=== PATIENT | female | born 1975 | race Caucasian/White ===

== ENCOUNTER → 2017-11-13 10:14 | Outpatient (CLI) | payer BC, SELFPAY ==
--- NOTE | 2017-11-13 10:25 | XR_ITS ---
XR wrist LT min 3V HISTORY: Pain following injury ORDERING PHYSICIAN: Veronica Sánchez PATIENT AGE: 42 years COMPARISON: None FINDINGS: No fracture or dislocation. No lytic or blastic change. There is normal mineralization.. The joint spaces are well-preserved. No significant degenerative/arthritic changes. No erosive changes evident.. IMPRESSION: Negative wrist
--- NOTE | 2017-11-13 10:26 | XR_ITS ---
XR elbow LT min 3V HISTORY: Left elbow pain following injury ITS.REASON: INJURY OF LEFT WRIST AND FOREARM,LEFT ELBOW FX ORDERING PHYSICIAN: Veronica Sánchez PATIENT AGE: 42 years COMPARISON: None FINDINGS: Comminuted fracture involves the radial head and neck with involvement of the articular surface of the proximal radius. There is minimal impaction of the radial neck. Displacement. Prominent anterior and posterior fat pad is present consistent with hemarthrosis. IMPRESSION: Comminuted nondisplaced left radial neck and head fracture
--- NOTE | 2017-11-13 10:26 | XR_ITS ---
XR forearm LT 2V HISTORY: Pain following injury ORDERING PHYSICIAN: Veronica Sánchez PATIENT AGE: 42 years COMPARISON: None FINDINGS: There is a known comminuted nondisplaced fracture of the radial head and neck best demonstrated on the elbow films. The mid and distal aspect of the radius and ulna have an unremarkable appearance. IMPRESSION: Comminuted nondisplaced fracture of the left radial head and neck. Otherwise negative left forearm
== END ==
PROVIDERS: PCP Family Medicine; Visit Provider Nurse Practitioner Family
DX: S69.92XD Unspecified injury of left wrist, hand and finger(s), subsequent encounter (principal); S59.912D Unspecified injury of left forearm, subsequent encounter; S42.402D Unspecified fracture of lower end of left humerus, subsequent encounter for fracture with routine healing
CPT/HCPCS: 73080; 73090; 73110

== ENCOUNTER → 2017-11-22 08:30 | Outpatient (CLI) | payer BC, SELFPAY ==
--- NOTE | 2017-11-22 08:33 | XR_ITS ---
XR elbow LT min 3V HISTORY: Follow-up fracture ITS.REASON: Left radial head fracture ORDERING PHYSICIAN: Scotty Barkley MD PATIENT AGE: 42 years COMPARISON: FINDINGS: Nondisplaced radial head and neck fracture once again noted. Radial component is longitudinal extends into the articular surface. Transverse component is at the radial neck. The fracture lines are somewhat more prominent and could be due to early healing. Intra-articular hemarthrosis with displaced fat pad identified. IMPRESSION: 1. Good alignment of the radial head and neck fracture. 2. Persistent displaced fat pad
== END ==
PROVIDERS: PCP Family Medicine; Visit Provider Orthopaedic Surgery
DX: S52.122A Displaced fracture of head of left radius, initial encounter for closed fracture (principal)
CPT/HCPCS: 73080

== ENCOUNTER → 2017-11-28 13:29 | Outpatient (CLI) | payer BC, SELFPAY ==
--- NOTE | 2017-11-28 13:31 | XR_ITS ---
XR elbow LT min 3V HISTORY: Follow-up fracture ITS.REASON: LT radial head fx ORDERING PHYSICIAN: Scotty Barkley MD PATIENT AGE: 42 years COMPARISON: 11/22/2017 FINDINGS: Radial head fracture once again noted with longitudinal component extending into the articular surface and transverse component of the radial neck. These fractures are nondisplaced and nonangulated with no significant change compared to the previous exam. Displaced anterior fat pad once again noted. IMPRESSION: No change nondisplaced radial head and neck fracture
== END ==
PROVIDERS: PCP Family Medicine; Visit Provider Orthopaedic Surgery
DX: S52.123A Displaced fracture of head of unspecified radius, initial encounter for closed fracture (principal)
CPT/HCPCS: 73080

== ENCOUNTER → 2017-12-06 08:24 | Outpatient (CLI) | payer BC, SELFPAY ==
--- NOTE | 2017-12-06 08:26 | XR_ITS ---
XR elbow LT min 3V HISTORY: Follow-up fracture ITS.REASON: Left radial head fracture ORDERING PHYSICIAN: Scotty Barkley MD PATIENT AGE: 42 years COMPARISON: 11/28/2017 FINDINGS: L shaped fracture involving the radial head and neck once again noted. The fracture line is somewhat less sharp and may be due to early healing. There is now minimal step off of the lateral aspect of the radial head with very minimal displacement. IMPRESSION: Healing radial head fracture now with very minimal step-off laterally
== END ==
PROVIDERS: PCP Family Medicine; Visit Provider Orthopaedic Surgery
DX: S52.123A Displaced fracture of head of unspecified radius, initial encounter for closed fracture (principal)
CPT/HCPCS: 73080

== ENCOUNTER → 2017-12-27 08:44 | Outpatient (CLI) | payer BC, SELFPAY ==
--- NOTE | 2017-12-27 08:46 | XR_ITS ---
XR elbow LT min 3V HISTORY: Follow-up fracture ITS.REASON: Radial head fx ORDERING PHYSICIAN: Scotty Barkley MD PATIENT AGE: 42 years COMPARISON: 12/06/2017 FINDINGS: Minimally depressed radial head and neck fracture once again noted with some increased sclerosis at the fracture site consistent with healing. Fracture line remains patent at the articular surface of the radial head. There remains minimal step-off of the radial head laterally. IMPRESSION: Healing left radial neck and head fracture
== END ==
PROVIDERS: PCP Family Medicine; Visit Provider Orthopaedic Surgery
DX: S52.123A Displaced fracture of head of unspecified radius, initial encounter for closed fracture (principal)
CPT/HCPCS: 73080

== ENCOUNTER → 2018-01-24 09:51 | Outpatient (CLI) | payer BC, SELFPAY ==
--- NOTE | 2018-01-24 09:55 | XR_ITS ---
XR elbow LT min 3V HISTORY: Follow-up fracture ITS.REASON: left elbow fracture ORDERING PHYSICIAN: Scotty Barkley MD PATIENT AGE: 42 years COMPARISON: 12/27/2017 FINDINGS: Left radial neck and head fracture once again noted is overall not significant changed. Fracture line still visible. Fracture is not significantly displaced. IMPRESSION: Overall no change nondisplaced radial head and neck fracture
== END ==
PROVIDERS: PCP Family Medicine; Visit Provider Orthopaedic Surgery
DX: S52.123A Displaced fracture of head of unspecified radius, initial encounter for closed fracture (principal)
CPT/HCPCS: 73080

== ENCOUNTER → 2018-02-12 13:24 | Outpatient (CLI) | payer BC, SELFPAY ==
--- NOTE | 2018-02-12 13:51 | CT_ITS ---
CT elbow LT wo con 3-D by rendering with shading Ordering Physician: Scotty Barkley MD Patient Age: 42 years: Female HISTORY: ITS.REASON: left radial head fx Patient slipped and fell getting out of of. Also involvement in the 8. Follow-up radial head fracture in November. Continues at left elbow pain unable straighten elbow right TECHNIQUE: Axial CT scan performed through the elbow with multiplanar reconstructions performed on CT as well as radiologist workstation. Additional 3-D by rendering imaging on radiologist [id number] CPT COMPARISON :Plain films left elbow January 24, 2018 December 27, 2017 December 06, 2017 FINDINGS We again see the fracture extending basically anterior to posterior to radial head and the continuing through the anterior radial neck.. Minor cortical buckling at the anterior radial neck. The radial head fracture is fairly congruent articular surface with only some very subtle barely evident cortical offset.. There is some very minor impaction of the fracture fragment yielding this and the mild cortical buckling at the neck The fracture line through radial head evident particularly at the radial head with minor sclerosis along the fracture margins.. Reflects incomplete osseous union still at this point. On close inspection there is also a subtle line passing longitudinally at the proximal ulna leading to articular surface.. This is seen on sagittal image 22, 21... Also question possible hairline micro-fracture proximal ulna on axial image 51 ! , particularly towards base and tip, coronoid process.. Initially question merely nutrient foramen but on further review I question and suspect are some healing microfractures here at medial aspect joint & notable at coracoid process. Continues to be smooth congruent appearance of the ulna articular surface. Distal humerus appears intact. Likely may be some early narrowing at the radial, capitate articulation which could reflect early degenerative change. No notable loose bodies are seen at the joint otherwise. IMPRESSION 1. 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 This fragment along the the anterior radial head very subtle impacted. 2. Question & suspect Extremely Subtle healing microfracture line at the proximal ulna -extending to the articular surface and involving coronoid process
== END ==
PROVIDERS: Family Provider Family Medicine; PCP Family Medicine; Visit Provider Orthopaedic Surgery
DX: S52.122A Displaced fracture of head of left radius, initial encounter for closed fracture (principal)
CPT/HCPCS: 73200

== ENCOUNTER → 2018-03-08 08:47 | Outpatient (CLI) | payer BC, SELFPAY ==
--- NOTE | 2018-03-08 08:51 | MM_ITS ---
MM Dig screening mamm BI w/CAD CAD Screening ORDERING PHYSICIAN : Serjio Cheng MD PATIENT AGE: 42 years GENDER: Female HISTORY no hormones no new complaints. Family history. Mother with breast cancer in her 50s; and maternal grandmother in her 40s COMPARISON:. None. Baseline mammogram TECHNIQUE: Standard CC and MLO images were obtained. R2 CAD reviewed. FINDINGS: Moderate diffuse fatty replacement with overall lower density breast but still with Minimal fibroglandular elements throughout seen throughout both breasts. Fairly symmetrical distribution with no dominant mass nor suspicious calcifications either breast no focal areas of significant concern. Bilateral follow-up within one year recommended.. Area IMPRESSION: Negative baseline mammogram No areas of significant concern on this baseline mammogram. . Follow-up one year recommended BI-RADS Category: 1 Negative RECOMMENDED FOLLOW-UP: 1YR - 1 YEAR FOLLOW-UP (A letter has been sent to the patient regarding results of the study.)
== END ==
PROVIDERS: Family Provider Family Medicine; PCP Family Medicine; Visit Provider Obstetrics & Gynecology
DX: Z12.31 Encounter for screening mammogram for malignant neoplasm of breast (principal)
CPT/HCPCS: 77067

== ENCOUNTER → 2019-06-25 16:15 | Outpatient (CLI) | payer BC, SELFPAY ==
[2019-06-25 16:31] LABS: Adenovirus F 40/41, stool Not Detected (NotDetected); Astrovirus Not Detected (NotDetected); Clostridium Difficile A/B, PCR Not Detected (NotDetected); Cyclospora Cayetanesis Not Detected (NotDetected); Entamoeba histolytica Not Detected (NotDetected); Enteroaggregative E coli Not Detected (NotDetected); Enteropathogenic E coli Not Detected (NotDetected); Enterotoxigenic E coli Not Detected (NotDetected); Giardia lamblia Not Detected (NotDetected); Norovirus Not Detected (NotDetected); Plesimonas Shigalloides, PCR Not Detected (NotDetected); Rotavirus A Not Detected (NotDetected); Salmonella, PCR Not Detected (NotDetected); Sapovirus Not Detected (NotDetected); Shiga-like toxin E coli Not Detected (NotDetected); Shigella Enterovasive E coli Not Detected (NotDetected); Vibrio Cholerae Not Detected (NotDetected); Vibrio, PCR Not Detected (NotDetected); Yersinia Entercolitica, PCR Not Detected (NotDetected)
[2019-06-25 18:15] LABS: Alanine Aminotransferase 55 U/L (12-78); Albumin Level 4.3 gm/dL (3.4-5.0); Albumin/Globulin Ratio 1.1 (1.1-1.8); Alkaline Phosphatase 108 U/L (46-116); Amylase 27 U/L (25-115); Anion Gap 18.1 mEq/L (5-15); Aspartate Amino Transferase 33 U/L (15-37); Bilirubin,Total 0.4 mg/dL (0.2-1.0); Blood Urea Nitrogen 9 mg/dL (7-18); Calcium 10.1 mg/dL (8.5-10.1); Carbon Dioxide 23 mmol/L (21.0-32.0); Chloride 100 mmol/L (98-107); Creatinine,Serum 0.79 mg/dL (0.55-1.02); Estimated Glomerular Filt Rate 80 ml/min (>60); GFR (African American) 97 ML/MIN (>60); Glucose 98 mg/dL (74-106); Lipase 140 u/L (73-393); Potassium 4.1 mmoL/L (3.5-5.1); Sodium 137 mmol/L (136-145); Total Protein,Serum 8.3 gm/dL (6.4-8.2)
[2019-06-25 20:08] LABS: Basophils % 0.2 % (0.1-2.0); Eosinophils % 0.5 % (0.1-12.0); Hematocrit 42.6 % (37.0-47.0); Hemoglobin 14.1 g/dL (12.2-16.2); Lymphocytes % 10.9 % (10-50); Mean Corpuscular HGB Conc 33.1 g/dL (31.8-35.4); Mean Corpuscular Hemoglobin 28.9 pg (27.0-31.2); Mean Corpuscular Volume 87.4 fl (81-99); Mean Platelet Volume 8.8 fl (7.4-10.4); Monocytes # 0.2 K/mm3 (0.1-1.0); Monocytes % 2.3 % (1.7-9.3); Neutrophils # 7.5 K/mm3 (1.8-7.8); Neutrophils % 86.2 % (37.0-80.0); Platelet Count 432 K/mm3 (142-424); Red Blood Count 4.87 M/mm3 (4.20-5.40); Red Cell Distribution Width 12.8 % (11.5-17.5); White Blood Count 8.8 K/mm3 (4.8-10.8)
[2019-06-25 20:10] LABS: MANUAL DIFFERENTIAL MANUAL DIFFERENTIAL (MANUAL DIFF)
[2019-06-25 20:55] LABS: Lymphocytes % 15 % (10-50); Monocytes % 3 % (2-9); Neutrophils % 82 % (42-76); Platelet Estimate Normal; RBC Morphology Normal; Total Cells Counted 100
[2019-06-25 21:35] LABS: Campylobacter Detected (NotDetected); Cryptosporidium Detected (NotDetected)
== END ==
PROVIDERS: Visit Provider Nurse Practitioner Family
DX: A07.2 Cryptosporidiosis (principal); R19.7 Diarrhea, unspecified; R10.10 Upper abdominal pain, unspecified; A04.5 Campylobacter enteritis
CPT/HCPCS: 36415; 80053; 82150; 83690; 85007; 85025; 87507

== ENCOUNTER → 2020-06-10 16:27 | Outpatient (CLI) | payer BC, SELFPAY ==
[2020-06-12 13:15] LABS: Covid-19 Nasal PCR Sendout Lex NOT DETECTED
== END ==
PROVIDERS: PCP Family Medicine; Visit Provider Family Medicine
DX: Z03.818 Encounter for observation for suspected exposure to other biological agents ruled out (principal)
CPT/HCPCS: U0004

== ENCOUNTER → 2021-01-26 14:17 | Outpatient (CLI) | payer BC, SELFPAY ==
[2021-01-26 14:46] LABS: Basophils % 0.2 % (0.1-2.0); Eosinophils # 0.1 K/mm3 (0.0-0.4); Eosinophils % 1.6 % (0.1-12.0); Hematocrit 39.3 % (37.0-47.0); Lymphocytes # 1.4 K/mm3 (0.7-4.5); Lymphocytes % 19.3 % (10-50); Mean Corpuscular Hemoglobin 29.1 pg (27.0-31.2); Mean Corpuscular Volume 88.1 fl (81-99); Mean Platelet Volume 7.7 fl (7.4-10.4); Monocytes # 0.2 K/mm3 (0.1-1.0); Neutrophils # 5.3 K/mm3 (1.8-7.8); Neutrophils % 75.9 % (37.0-80.0); Platelet Count 299 K/mm3 (142-424); Red Blood Count 4.46 M/mm3 (4.20-5.40); Red Cell Distribution Width 13.2 % (11.5-17.5)
[2021-01-26 16:02] LABS: 25-OH Vitamin D, Total 42.2 ng/mL (30-100)
[2021-02-01 05:34] LABS: Immunoglobulin E, Total 6 IU/mL (6-495)
[2021-02-02 04:21] LABS: F256-IgE Walnut <0.10 kU/L (Class 0)
== END ==
PROVIDERS: Visit Provider Allergy & Immunology
DX: J45.40 Moderate persistent asthma, uncomplicated (principal)
CPT/HCPCS: 36415; 82306; 82785; 85025; 86003

== ENCOUNTER → 2021-02-12 10:54 | Outpatient (CLI) | payer BC, SELFPAY ==
--- NOTE | 2021-02-12 10:57 | XR_ITS ---
PROCEDURE: XR ANKLE RT MIN 3V CLINICAL INDICATION: INJURY OF RT ANKLE,RT ANKLE SWELLING, NUMBNESS OF RT FOOT COMPARISON: No exams were available for comparison FINDINGS: No fracture or dislocation. No lytic or blastic change. There is normal mineralization. The joint spaces are well-preserved. No significant degenerative/arthritic changes. No erosive changes evident. Other findings:There is a small metallic foreign body along the plantar surface of the foot along the plantar aspect of the 1st and 2nd metatarsals distally. This is linear in nature measuring approximately 5 mm. There is a small calcaneal spur. IMPRESSION: Unremarkable ankle. Metallic foreign body in the plantar aspect of the foot superficial to the region of the head of the 1st and 2nd metatarsals Dictated by: Juan Ventura MD 02/12/2021 12:00 Juan Ventura MD in [place] 02/12/2021 12:00
== END ==
PROVIDERS: PCP Nurse Practitioner Family; Visit Provider Nurse Practitioner Family
DX: S99.911A Unspecified injury of right ankle, initial encounter (principal); S93.431A Sprain of tibiofibular ligament of right ankle, initial encounter; M25.471 Effusion, right ankle; R20.0 Anesthesia of skin
CPT/HCPCS: 73610

== ENCOUNTER → 2021-11-01 08:41 | Outpatient (CLI) | payer BC, SELFPAY ==
--- NOTE | 2021-11-01 08:42 | CA_ITS ---
APPROVED REPORT EXAM: Comprehensive 2D, Doppler, and color-flow Echocardiogram Hi Teacher: Michelle Mckeon, RT(R) Ht: 5 ft 3 in Wt: 218lbs BSA: 2.01 BP: 123/85 mmHg Indications: SOB, fatigue, ABN EKG 2D Dimensions LVOT 1.90 cm (M/F) 1.5-2.5 LA Volume 44.40 mL LA Volume Index 22.20 mL/m2 (M/F) 16-34 M-Mode Dimensions RVDd 2.58 cm (0.9-2.6) LA Diam 3.05 cm (1.9-4.0) LVDd 5.35 cm (3.5-5.7) Ao Diam 2.97 cm (2.0-3.7) LVDs 3.99 cm (3.5-5.7) IVSd 0.80 cm (0.6-1.1) PWd 0.68 cm (0.6-1.1) EF (Teich) 49.70% FS 25.40% EDV (Teich) 138.30 mL ESV (Teich) 69.60 mL LV Diastology E Decel Time 217.00 (160-240 msec) E/A Ratio 0.9 MED E' 13.10 (< 7 cm/sec) E'/MED E' Ratio 5.63 (>14) LAT E' 14.50 (<10 cm/sec) E/LAT E' Ratio 5.09 (>14) Mitral Valve MV E Max Lamonte. 74.00 (40-130 cm/s) MV A Velocity 80.00 (40-130 cm/s) E/A Ratio 0.92 MV Decel. Time 217.00 (160-240 ms) MV PHT 63.00 ms Left Ventricle Left atrium is normal size, left ventricle is normal size, there is no concentric left ventricular hypertrophy, visually estimated ejection fraction 55% with no regional wall motion abnormality, diastolic parameters are within normal range. Right Ventricle Right atrium and right ventricle are normal size and contractility. Aortic Valve Aortic valve is minimally thickened and fibrosed, there is no aortic stenosis or aortic insufficiency. Mitral Valve Mitral valve grossly normal, there is trace mitral regurgitation. Tricuspid Valve Tricuspid valve grossly normal, there is trace tricuspid regurgitation, tricuspid regurgitation jet velocity is inadequate for calculation of the right ventricular systolic pressure. Pulmonic Valve Pulmonic valve is poorly visualized. Great Vessels Aortic root is normal size. Inferior vena cava is normal size with normal inspiratory collapse. Pericardium No significant pericardial effusion noted. Conclusion 1. Normal left ventricular size, preserved left ventricular systolic function, visually estimated ejection fraction 55% with no regional wall motion abnormality, diastolic parameters are within normal range. 2. Trace mitral and tricuspid regurgitation. 3. No significant pericardial effusion noted. 4. Inferior vena cava is normal size with normal inspiratory collapse. Electronically signed by : Fermín Nevarez MD 11/01/2021 17:07:05
== END ==
PROVIDERS: PCP Family Medicine; Visit Provider Nurse Practitioner Family
DX: R06.00 Dyspnea, unspecified (principal); R61 Generalized hyperhidrosis; G47.30 Sleep apnea, unspecified
CPT/HCPCS: 93306; G0399

== ENCOUNTER → 2021-11-17 08:15 | Outpatient (CLI) | payer BC, SELFPAY ==
--- NOTE | 2021-11-17 | CA_ITS ---
APPROVED REPORT Exam: Exercise Treadmill Technologist: Francheska Amin, Ht: 5 ft 3 in Wt: 212 lbs BSA: 1.98 m2 HR: 76 bpm BP: 145/87 mmHg Rhythm: NSR, ST-T ABNS INFERIORLY AND LATERALLY Medical History Medications: Sertraline,,,,, Allergies: No known drug allergies Stress Test Details Test: Nicol, Exercise stress testing was performed using a Nicol protocol. HR Resting HR: 90 bpm Max Heart Rate (APMHR): 175.462882 bpm Max HR Achieved: 188 bpm Target HR (85% APMHR): 148.669074 bpm % of APMHR: 107.43 Recovery HR: 82 bpm BP Resting BP: 145/87 mmHg Max BP: 161/90 mmHg Recovery BP: 132.0/82.0 mmHg ECG Resting ECG: NSR, ST-T ABNS INFERIORLY AND LATERALLY Clinical Exercise duration: 08:24 min Highest Stage Achieved: Exercise capacity: 10.1 METs Stress ECG Conclusion EXERCISED 8:24 ON NICOL PROTOCOL. MAX HR: 159. % OF PM:91%. METS:10.1. TEST STOPPED DUE TO:SOA. PT JUST HAD DYSPNEA NO CP. EXAGGERATION OF BASELINE ABNS. NON-DIAGNOSTIC GXT DUE TO BASELINE EKG ABNS. GXT ONLY(NO IMAGING) Electronically signed by : Fermín Nevarez MD 11/17/2021 20:40:04
== END ==
PROVIDERS: PCP Family Medicine; Visit Provider Urology
DX: R94.31 Abnormal electrocardiogram [ECG] [EKG] (principal); R61 Generalized hyperhidrosis
CPT/HCPCS: 93017

== ENCOUNTER → 2021-12-09 11:40 | Outpatient (CLI) | payer BC, SELFPAY ==
[2021-12-09 11:58] LABS: Coronavirus 19, PCR Not Detected (NotDetected); Influenza A, PCR Not Detected (NotDetected); Influenza B, PCR Not Detected (NotDetected)
== END ==
PROVIDERS: Visit Provider Nurse Practitioner Family
DX: Z01.812 Encounter for preprocedural laboratory examination (principal); Z11.52 Encounter for screening for COVID-19
CPT/HCPCS: C9803; U0003; U0005

== ENCOUNTER → 2021-12-09 21:05 | Outpatient (CLI) | payer BC, SELFPAY | PROVIDERS: PCP Family Medicine; Visit Provider Nurse Practitioner Family | DX: G47.33 Obstructive sleep apnea (adult) (pediatric) (principal); R40.0 Somnolence | CPT/HCPCS: 95810 ==

== ENCOUNTER 2022-03-15 14:49 | Emergency (ER) | payer BC, SELFPAY ==
[2022-03-15 15:10] VITALS: BP 141/94; PULSE 80; RESP 18; TEMP 36.7; O2SAT 95; BMI 37.2
[2022-03-15 15:18] LABS: Adenovirus,PCR Not Detected (NotDetected); Bordetella Pertussis Not Detected (NotDetected); Chlamydophila Pneumoniae, PCR Not Detected (NotDetected); Coronavirus 19, PCR Not Detected (NotDetected); Coronavirus 229E Not Detected (NotDetected); Coronavirus NL63 Not Detected (NotDetected); Coronavirus OC43 Not Detected (NotDetected); Coronovirus HKU1,PCR Not Detected (NotDetected); Human Metapneumovirus Not Detected (NotDetected); Influenza A, PCR Not Detected (NotDetected); Influenza AH1, 2009 Not Detected (NotDetected); Influenza AH1, PCR Not Detected (NotDetected); Influenza AH3,PCR Not Detected (NotDetected); Influenza B, PCR Not Detected (NotDetected); Mycoplasma Pneumoniae, PCR Not Detected (NotDetected); Parainfluenza 1, PCR Not Detected (NotDetected); Parainfluenza 2, PCR Not Detected (NotDetected); Parainfluenza 3, PCR Not Detected (NotDetected); Parainfluenza 4, PCR Not Detected (NotDetected); Respiratory Syncytial Virus Not Detected (NotDetected); Rhinovirus/Enterovirus Not Detected (NotDetected)
--- NOTE | 2022-03-15 15:36 | HMH.EDUTC ---
[facility] [place] Clinical Impression: Bronchitis Disposition: Home, Self-Care Condition on Discharge: Good Instructions: Cough, DI for Cough -- Adult Additional Instructions: ? Start antibiotic today. Be sure to complete entire prescription even if feeling better ? Monitor temp. Tylenol every 4 hours as needed and / or ibuprofen every 6 hours as needed ( As long as your primary care physician has told you that it ok to take both. For fever/aches/pains ER if no less than 101 despite Tylenol or Motrin ? Humidifier/vaporizer or hot steamy shower ? Inhaler every 4-6 hours as needed like we discussed. If unsure how to use it, ask pharmacist to demonstrate how. Should help open airways and improve cough, wheezing, and shortness of breath ? Mucinex during the day for your cough and cough suppressant only at night. Be sure to drink lots of water. Insurance may not cover a prescriptions for mucinex. Might be cheaper to get 400mg tablets and take 2 tablet in the morning, mid-day and evening with lots of water. *Promethazine DM cough syrup will cause drowsiness. Use only at night. No driving, operating machinery or caring for small children after taking it *Tessalon Perles will not cause drowsiness but use at bedtime to help stop cough so that you may get some rest. *Start steroid today. Helps with inflammation therefore, cough and wheezing. Follow directions on the package. Reviewed side effects. Patient reports taking them before. Follow up IMMEDIATELY for new or worsening of symptoms OR no noticeable improvement over the next 48-72 hours. 911 immediately for any life threatening symptoms such as chest pain or difficulty breathing Prescriptions: Albuterol Sulfate [Proventil-HFA 90mcg/puff Inh] 1 - 2 puffs IH Q6HP PRN #1 each PRN Reason: Shortness Of Breath Transmission Status: Received by [facility] # dexAMETHasone [Dexamethasone] 6 mg PO DAILY 3 Days #3 tab Transmission Status: Received by [facility] # Promethazine/Dextromethorphan [Promethazine-Dm Syrup] 2.5 - 5 ml PO Q6H PRN #120 ml PRN Reason: Cough Transmission Status: Received by [facility] # Azithromycin [Z-Regulo 250mg Tab] 250 mg PO DIRECTED #6 tab Transmission Status: Received by [facility] #[id number] Referrals: Carol Martins APRN [Primary Care Provider] - As needed Medical Decision Making - Hakan Inquiry Pt receiving controlled substance: No Hakan was queried for this patient: No Vital Signs: 03/15/22 15:10 03/15/22 15:59 Temperature 98.0 F 98.0 F Temperature Source Oral Pulse Rate 80 Pulse Rate [Right Brachial] 80 Respiratory Rate 18 18 Blood Pressure 141/94 H Blood Pressure [Right Arm] 141/94 H Blood Pressure Mean [Right Arm] 109 Blood Pressure Source [Right Arm] Automatic Cuff Blood Pressure Position [Right Arm] Sitting 02 Sat by Pulse Oximetry 95 Oxygen Delivery Method Room Air Orders (Tests/Meds): ORDERS Category Date Time Status Full Resp Panel w/COVID ([facility]) Routine Lab 03/15/22 15:12 Received Medical Decision Narrative: Discussed CXR with patient and she advised she wasnt having any rattling in her chest so declined it [facility] [place] - General Stated complaint: soa bron. symptons Time Seen by Provider: 03/15/22 15:25 Mode of Arrival: Ambulatory Source of Information: Patient Limitations: No Limitations Description of Symptoms (Recalled from Triage Doc. by RN): PATIENT C/O CHEST CONGESTION AND SOA. SHE STATES SHE HAS HAD BRONCHITIS FOR 2 WEEKS AND IS NOT GETTING BETTER HEENT Symptoms (Recalled from RN notes): No Resp Symptoms (Recalled from RN notes): Yes Skin Symptoms (Recalled from RN notes): No MS Symptoms (Recalled from RN notes): No Functional Status (Recalled from RN notes): WNL - History of Present Illness Provider Complaint: Patient states that she has asthma States that she had bronchitis about 2 weeks ago and was treated by her PCP but for the last couple
[2022-03-15 15:59] VITALS: BP 141/94; PULSE 80; RESP 18; TEMP 36.7; O2SAT 95
== END 2022-03-15 16:10 | disposition home or self-care (01) ==
PROVIDERS: Emergency Provider Nurse Practitioner; PCP Nurse Practitioner
DX: J40 Bronchitis, not specified as acute or chronic (principal)
CPT/HCPCS: 87581; 87632; 87798; 99212; C9803; G0463; U0003; U0005

== ENCOUNTER 2023-02-12 12:06 | Emergency (ER) | payer BC, SELFPAY ==
--- NOTE | 2023-02-12 12:25 | XR_ITS ---
PROCEDURE INFORMATION: Exam: XR Right Foot Exam date and time: 02/12/2023 12:43 PM Age: 47 years old Clinical indication: Right; Patient HX: PT moving logs around x days ago, foot began hurting shortly after. Worsened mostly since yesterday, PT states painful to put pressure on foot. Pain @ dorsal surface of RT foot and at 2nd digit. TECHNIQUE: Imaging protocol: Radiologic exam of the right foot. Views: 3 or more views. COMPARISON: CR XR ANKLE RT MIN 3V 02/12/2021 11:03 AM FINDINGS: Bones/joints: No evidence of acute osseous injury. Minimal enthesophyte plantar margin of the calcaneus at the site of attachment of the plantar aponeurosis. Soft tissues: Approximate 5 mm radiopaque foreign body along the plantar aspect of the foot at the level of the 1st and 2nd metatarsals. Findings demonstrated on the 02/12/2021 examination and do not appear significantly changed in location. Clinically correlate. IMPRESSION: 1. Approximate 5 mm radiopaque foreign body along the plantar aspect of the foot at the level of the 1st and 2nd metatarsals. Findings demonstrated on the 02/12/2021 examination and do not appear significantly changed in location. Clinically correlate. 2. No evidence of acute osseous injury.
[2023-02-12 12:31] VITALS: BP 142/87; PULSE 93; RESP 18; TEMP 36.6; O2SAT 97; BMI 38.0
--- NOTE | 2023-02-12 12:43 | EXP.UTC ---
Discharge Plan Disposition Patient Disposition: Home, Self-Care Condition: Good Prescriptions Prescriptions: No Action omeprazole 40 mg capsule,delayed release(DR/EC) 40 mg PO DAILY Qty: 90 3RF sertraline [Zoloft] 100 mg tablet 150 mg PO Q24H estradiol 1 mg tablet 1 mg PO DAILY Rx Instructions: off 1 week; repeat cycle albuterol sulfate 200 PUFF HFA aerosol inhaler 1 - 2 puffs IH Q6HP PRN (Reason: Shortness Of Breath) Qty: 1 0RF Referrals Follow up/Referrals: Rosa Maria Young MD [Primary Care Provider] - See instructions Activity Restrictions/Add. Instructions Additional Instructions/Restrictions: Weightbearing as tolerated rest Ice with cold pack for 20 minutes remove may repeat for comfort every hour Elevate with foot above your heart as much as possible to help reduce swelling and therefore pain Ibuprofen every 6 hours as needed for pain or inflammation. If needs something more you can take Tylenol every 4 hours as needed as long as her primary care has told he was okayed for you to take both. If improving any do not need to follow-up you can bring begin exercising 2-3 weeks after injury. Follow-up immediately if new or worsening symptoms or no noticeable improvement over the next 3-5 days. call ortho Clinical Impressions Clinical Impression: Pain in toe Instructions Patient Instructions: DI for Contusion Discharge ED Provider: Anand ([facility] General Stated complaint: AO 5/5 Right foot the second toe swolle/painful Mode of Arrival: Ambulatory Source of Information: Patient Limitations: No Limitations Time Seen by Provider: 02/12/23 12:43 Description of Symptoms (Recalled from Triage Doc. by RN): pt c/o R foot 2nd toe pain x2 days. pt states she was cleaning and thinks she hit it on something. HEENT Symptoms (Recalled from RN notes): No Resp Symptoms (Recalled from RN notes): No Skin Symptoms (Recalled from RN notes): No MS Symptoms (Recalled from RN notes): Yes Functional Status (Recalled from RN notes): wnl History of Present Illness Provider Complaint: 47 yr old female c/o R foot 2nd toe pain x2 days. pt states she was cleaning and thinks she hit it on something. pt states pain has increased Related Data Home Medications Medication Instructions Recorded Confirmed sertraline 100 mg tablet (Zoloft) 150 mg PO Q24H 01/14/22 09/23/22 estradiol 1 mg tablet 1 mg PO DAILY 11/18/21 07/01/22 Previous Rx's Medication Instructions Recorded albuterol sulfate 90 mcg/actuation 1 - 2 puffs inhalation Q6HP PRN 03/15/22 aerosol inhaler Shortness Of Breath #1 ea omeprazole 40 mg capsule,delayed 40 mg PO DAILY #90 caps 07/01/22 release Allergies Allergy/AdvReac Type Severity Reaction Status Date / Time dissolving sutures Allergy Unknown Uncoded 07/01/22 10:07 LIQUID BANDAID Allergy Unknown SWELLING Uncoded 07/01/22 10:07 Worker's Comp Is this a Worker's Comp case?: No [facility] Disclaimer: The information contained in this section may have been updated after the patient was seen, as this information can be updated by other users. 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
[2023-02-12 13:00] VITALS: BP 142/87; PULSE 93; RESP 18; TEMP 36.6
== END 2023-02-12 13:06 | disposition home or self-care (01) ==
PROVIDERS: Emergency Provider Nurse Practitioner Family; PCP Family Medicine
DX: M79.674 Pain in right toe(s) (principal); W22.8XXA Striking against or struck by other objects, initial encounter
CPT/HCPCS: 73630; 99212; 99214; G0463

== ENCOUNTER 2025-01-06 08:37 | Outpatient (CLI) | payer BC, SELFPAY ==
--- NOTE | 2025-01-06 08:45 | CA_ITS ---
APPROVED REPORT EXAM: Comprehensive 2D, Doppler, and color-flow Echocardiogram Garment Looper: Mehnaz Silva RVT Ht: 5 ft 3 in Wt: 252lbs BSA: 2.13 BP: 129/85 mmHg Indications: PRE-OP,ABN EKG,CP,SOA 2D Dimensions LA Volume 27.90 mL LA Volume Index 13.04 mL/m2 (M/F) 16-34 M-Mode Dimensions RVDd 2.65 cm (0.9-2.6) LA Diam 3.37 cm (1.9-4.0) LVDd 4.79 cm (3.5-5.7) LVDs 3.18 cm (3.5-5.7) IVSd 1.04 cm (0.6-1.1) PWd 0.79 cm (0.6-1.1) EF (Teich) 62.30% FS 33.60% EDV (Teich) 107.00 mL TAPSE 2.73 (<1.7) ESV (Teich) 40.30 mL LV Diastology E Decel Time 243 (160-240 msec) E/A Ratio 0.8 Aortic Valve JEFRY Index 1.33 cm2/m2 AoV Peak Lamonte. 136.0 (50-130 cm/s) AO Peak GR. 7.40 mmHg AO Mean GR. 3.90 (<5 mmHg) AO VTI 19.7 (18-25 cm) JEFRY (VTI) 2.91 (2.5-4.5 cm2) Mitral Valve MV E Max Lamonte. 60.0 (40-130 cm/s) MV A Velocity 71.0 (40-130 cm/s) E/A Ratio 0.85 MV PHT 71.0 ms Pulmonary Valve PV Peak Velocity 92.0 (50-150 cm/s) Tricuspid Valve TR P. Velocity 229.00 cm/s RAP Estimate 10.00 mmHg RVSP 31.00 mmHg Left Ventricle The left ventricle is normal size. The left ventricular systolic function is low normal. There is normal left ventricular wall thickness. There is normal LV segmental wall motion. The left ventricular diastolic function is normal. LVEF is 50%. Right Ventricle The right ventricle is normal size. The right ventricular systolic function is normal. Atria The left atrium size is normal. The right atrium size is normal. There is no Doppler evidence of interatrial shunt. Aortic Valve The aortic valve opens well. There is no aortic valvular stenosis. No aortic regurgitation is present. Mitral Valve The mitral valve is normal in structure. No evidence of mitral valve stenosis. Trace mitral regurgitation. Tricuspid Valve Tricuspid valve is grossly normal in structure and function. Trace tricuspid regurgitation. Pulmonic Valve The pulmonary valve is normal in structure. Trace pulmonic regurgitation. There is insufficient TR jet to estimate RVSP. Great Vessels The aortic root is normal in size. The ascending aorta is borderline dilated, measuring 3.7 cm in diameter. IVC is normal in size and collapses >50% with inspiration. Pericardium There is no pericardial effusion. Other Information Study Quality: Fair Conclusion Low normal LV systolic function (LVEF 50%). No significant valvular stenosis or regurgitation. The ascending aorta is borderline dilated, measuring 3.7 cm in diameter. Electronically signed by : Rhonda Cerna MD 01/06/2025 23:53:52
== END 2025-01-06 23:59 | disposition home or self-care (01) ==
LOC: RT 08:37
PROVIDERS: PCP Family Medicine; Visit Provider Nurse Practitioner Family
DX: Z01.810 Encounter for preprocedural cardiovascular examination (principal); R94.31 Abnormal electrocardiogram [ECG] [EKG]
CPT/HCPCS: 93306

== ENCOUNTER 2025-01-29 07:40 | Outpatient (CLI) | payer BC, SELFPAY ==
--- NOTE | 2025-01-29 08:00 | CT_ITS ---
FINAL REPORT TECHNIQUE: Axial imaging of the chest is obtained after the administration of contrast. 3-D MIP reformatted images were also obtained and reviewed per PE protocol. CLINICAL HISTORY: aneurysm COMPARISON: none FINDINGS: No central pulmonary embolus. The ascending aortic diameter is 32 mm and the descending aortic diameter is 28 mm, within normal limits. There is no aortic dissection. The heart is borderline in size. There is no mediastinal, hilar, or axillary lymphadenopathy. There is a 4 mm left upper lobe pulmonary nodule on image 23. There is also a 2 mm subpleural right upper lobe nodule on image 39. The lungs are otherwise clear.. There is no pleural or pericardial effusion. Limited evaluation of the upper abdomen is without acute abnormality. No acute osseous abnormality. IMPRESSION: No evidence of thoracic aortic aneurysm or dissection. Bilateral 4 mm or less upper lobe pulmonary nodules. Recommend follow-up after risk stratification per Fleischner's criteria. Reviewed, Interpreted and Dictated by Andreina Vazquez MD Transcribed by Mayra Yates Authenticated and [facility]
[2025-01-29] MEDS: SODIUM CHLORIDE 0.9% 10ML SYR (RAD ONLY) 10 ML IV (08:12)
[2025-01-29] MEDS: IOPAMIDOL-370 (76%);100ML BOTTLE 100 ML IV (08:12)
[2025-01-29] MEDS: 0.9 % SODIUM CHLORIDE 50 ML VIAL IV (08:12)
== END 2025-01-29 23:59 | disposition home or self-care (01) ==
LOC: RAD 07:41
PROVIDERS: PCP Family Medicine; Visit Provider Nurse Practitioner Family
DX: R94.31 Abnormal electrocardiogram [ECG] [EKG] (principal); R07.9 Chest pain, unspecified; I77.810 Thoracic aortic ectasia
CPT/HCPCS: 71275; Q9967

== ENCOUNTER 2025-06-30 09:11 | Outpatient (CLI) | payer BC, SELFPAY ==
--- OUTSIDE RECORDS SUMMARY | 2025-06-30 09:38 | XMS_ITS | Clinical Summary ---
Author Organization [facility] Address [address] [place] [address] Care Team Providers Care Auto Bumper Straightener Name Role Phone James Riggins MD Primary Care Provider + Allergies Active Allergy Reactions Criticality Noted Date Comments Other Swelling 08/03/2017 Surgical GLUES cause swelling, allergic to surgical stitches Medications montelukast (SINGULAIR) 10 MG tablet Take 10 mg by mouth Every Night. Active albuterol (PROVENTIL HFA;VENTOLIN HFA) 108 (90 Base) MCG/ACT inhaler Inhale 2 puffs Every 4 (Four) Hours As Needed for Wheezing. Active sertraline (ZOLOFT) 100 MG tabletIndicatio ns:Anxiety Take 1 tablet by mouth Daily. 30 tablet 11 1 Active Additional Information Patient taking differently: 150 mgOral Daily, Reported on 11/16/2022 hydrOXYzine pamoate (VISTARIL) 25 MG capsuleIndicati ons:Anxiety Take 1 capsule by mouth 3 (Three) Times a Day As Needed for Itching. 30 capsule 3 1 Active Clyde-3 Fatty Acids (fish oil) 500 MG capsule capsule Acti ve omeprazole (priLOSEC) 40 MG capsule 3 Active estradiol (Estrace) 1 MG tablet Take 1 tablet by mouth Daily. 90 tablet 3 3 Active Active Problems Problem Noted Date Diagnosed Date History of UTI 09/26/2017 Acute URI 09/26/2017 Post-operative state 09/26/2017 Endometriosis 08/11/2017 Overview (08/11/2017): Added automatically from request for surgery [id number] Dysmenorrhea 08/03/2017 Abnormal uterine bleeding (AUB) 08/03/2017 Intramural leiomyoma of uterus 08/03/2017 Family History Medical History Relation Name Comments Heart disease Father Breast cancer Maternal Aunt 1 Cervical cancer Maternal Aunt 1 Brain cancer Maternal Aunt 2 Cervical cancer Maternal Aunt 2 Breast cancer Maternal Grandmother unknow n Cervical cancer Mother Colon cancer Neg Hx Ovarian cancer Neg Hx Uterine cancer Neg Hx Relation Name Status Comments Father Maternal Aunt 1 Maternal Aunt 2 Maternal Grandmother Mother Social History Tobacco Use Types Packs/Day Years Used Date Smoking Tobacco: Never Smokeless Tobacco: Never Alcohol Use Standard Drinks/Week Comments Yes 0 (1 standard drink = 0.6 oz pur e alcohol) 2-4 drinks a wek Abuse Screen Answer Date Recorded Unsafe at Home or Work/School Not on file Feels Threatened by Someone? Not on file 06/2023 Does Anyone Keep You from Co ntacting Others or Doint Things Outside the Home? Not on file 07/17/2023 Physical Sign of Abuse Present Not on file 1 Housing Stability Answer Date Recorded Current Living Arrangements Not on file 06/2023 Potentially Unsafe Housing Conditions Not on nazario e 07/17/2023 Family and Community Support Answer Raj e Recorded Help with Day-to-Day Activities Not on file 07/17/2023 Lonely or Isolated Not on file 07/17/2023 Employment Answer Date Recorded Do you want help finding or keeping work or a roberto b? Not on file 07/17/2023 Disabilities Answer Date Recorded Concentrating, Remembering, or Making Decisions Difficulty Not on file 07/17/2023 Doing Errands Independently Difficulty Not on fi le 07/17/2023 Education Answer Date Recorded Help with school or training? Not on file Preferred Language Not on file 07/17/2023 Comments No Sex and Gender Information Value Date Recorded Sex Assigned at Not on file Legal Sex Female 12:57 PM EDT Gender Identity Not on file Sexual Orientation Not on file Last Filed Vital Signs Vital Sign Reading Time Taken Comments Blood Pressure 110/78 11/16/2022 9:20 AM EST Pulse 93 10/19/2017 2:22 PM EST Temperature 36.5 C (97.7 F) 10/19/2017 2:22 PM EST Respiratory Rate 18 11/16/2022 9:20 AM EST Oxygen Saturation 96% 10/19/2017 2:22 PM EST Inhaled Oxygen Concentration - - Weight 103 kg (227 lb) 11/16/2022 9:20 AM EST Height 160 cm (5' 2.99 ) 11/16/2022 9:20 AM EST Body Mass Index 40.22 11/16/2022 9:20 AM EST Plan of Treatment Health Maintenance Due Date Last Done Comments TDAP/TD VACCINES (1 - Tdap) 1995 ANNUAL PHYSICAL 08/03/2017 HEPATITIS C SCREENING 08/03/2017 COLON CANCER SCREENING 5 YEAR SIGMOIDOSCOPY [address] COLONOGRAPHY 2021 FECAL OCCULT BLOOD TEST 2021 FIT Testing (1 year) 2021 PAP SMEAR 11/16/2023 11/16/2022, 01/08, 04/18/2019, Additional history exists Annual Gynecologic Pelvic and Breast Exam 11/17/2023 11/16/2022 MAMMOGRAM 04/17/2025 04/17/2023, 04/08, 04/17/2023, Additional history exists INFLUENZA VACCINE 05/09/2025 COLOGUARD 11/29/2025 11/29/2022 COLORECTAL CANCER SCREENING 11/29/2025 Pneumococcal Vaccine 0-49 Aged Out No longer eligible based on patient's age to complete this topic Procedures Procedure Name Priority Date/Time Associated Diagnosis Comments MAMMO OUTSIDE FILMS Routine 04/17/2023 3:07 PM EDT H/O mammogram COLOGUARD Routine 11/29/2022 10:00 AM EST Screening for colon cancer LIQUID-BASED PAP SMEAR, [facility]) Routine 11/16/2022 4:17 PM EST Pap test, as part of routine gynecological examination from Last 3 Months or Most Recently Relevant to Health Maintenance Results * MAMMO Outside Films (04/17/2023 3:07 PM EDT) Narrative SYSTEMGENERATED, DOCUMENTATION - 04/17/2023 3:07 PM EDT This procedure was auto-finalized with no dictation required. Sathya Paris AQUEDUCT AND RESERVOIR KEEPER IMG MAMMOGRAPHY ORDERABLES Fi nal Result * Cologuard - Stool, Per Rectum (11/29/2022 10:00 AM EST) Cologuard Negative Negative 12/06/2022 5:14 PM EST DEQ (CLIA #:[id number]) Comment: NEGATIVE TEST RESULT. A negative Cologuard result indicates a low likelihood that a colorectal cancer (CRC) or advanced adenoma (adenomatous polyps with more advanced pre-malignant features) is present. The chance that a person with a negative Cologuard test has a colorectal cancer is less than 1 in 1500 (negative predictive value >99.9%) or has an advanced adenoma is less than 5.3% (negative predictive value 94.7%). These data are based on a prospective cross-sectional study of 10,000 individuals at average risk for colorectal cancer who were screened with both Cologuard and colonoscopy. (Pariiallos T. et al, N Engl J Med 2014;370(14):5885-9309) The normal value (reference range) for this assay is negative. COLOGUARD RE-SCREENING RECOMMENDATION: Periodic colorectal cancer screening is an important part of preventive healthcare for asymptomatic individuals at average risk for colorectal cancer. Following a negative Cologuard result, the [place] Cancer Society and U.S. Multi-Society Task Force screening guidelines recommend a Cologuard re-screening interval of 3 years. References: [place] [employer] Guideline for Colorectal Cancer Screening: https://www.cancer.org/cancer/igyip-advtzv-ccpajv/meekhkmqr-pbuwnqfhn-ulbjrem/ac s-rec ommendations.html.; Jacob REDDING, Hammad DAWN, Laura GUZMAN, Colorectal Cancer Screening: Recommendations for Physicians and Patients from the U.S. Multi-Society Task Force on Colorectal Cancer Screening , Am J Gastroenterology 2017; 112:3702-4305. TEST DESCRIPTION: Composite algorithmic analysis of stool DNA-biomarkers with hemoglobin immunoassay. Quantitative values of individual biomarkers are not reportable and are not associated with individual biomarker result reference ranges. Cologuard is intended for colorectal cancer screening of adults of either sex, 45 years or older, who are at average-risk for colorectal cancer (CRC). Cologuard has been approved for use by the U.S. FDA. The performance of Cologuard was established in a cross sectional study of average-risk adults aged 50-84. Cologuard performance in patients ages 45 to 49 years was estimated by sub-group analysis of near-age groups. Colonoscopies performed for a positive result may find as the most clinically significant lesion: colorectal cancer [4.0%], advanced adenoma (including sessile serrated polyps greater than or equal to 1cm diameter) [20%] or non- advanced adenoma [31%]; or no colorectal neoplasia [45%]. These estimates are derived from a prospective cross-sectional screening study of 10,000 individuals at average risk for colorectal cancer who were screened with both Cologuard and colonoscopy. (Oswaldo Alvarado. et al, N Engl J Med 2014;370(14):3742-3186.) Cologuard may produce a false negative or false positive result (no colorectal cancer or precancerous polyp present at colonoscopy follow up). A negative Cologuard test result does not guarantee the absence of CRC or advanced adenoma (pre-cancer). The current Cologuard screening interval is every 3 years. ([place] [employer] Society and U.S. Multi-Society Task Force). Cologuard performance data in a 10,000 patient pivotal study using colonoscopy as the reference method can be accessed at the following location: www.Metaboli.CIVICO/results. Additional description of the Cologuard test process, warnings and precautions can be found at www.Discomixdownload.comrd.com. Stool specimen (specimen) Specimen from rectum / Unknown 11/29/2022 10:00 AM EST 11/30/2022 1:44 PM EST us Sathya Paris AQUEDUCT AND RESERVOIR KEEPER BODY FLUIDS AND STOOLS ORDERA BLES Final Result DEQ (CLIA #:[id number]) [address] [place] [address], [place] [phone] * LIQUID-BASED PAP SMEAR, [facility]) (11/16/2022 4:17 PM EST) Reference Lab Report [facility] [address] [place] [id number] or [phone] Samuel Pappas M.D., Relocation Manager PATIENT NAME LABORATORY NO. 65NILE CANCHOLA [id number] AGE SEX SSN CLIENT REF # [facility] 46 1975 F [id number] [facility] JUAN BACA REQUESTING Victor Manuel [place] [address] SATHYA PARIS DATE COLLECTED DATE RECEIVED DATE REPORTED 11/16/2022 11/16/2022 11/18/2022 ThinPrep Pap with Cytyc Imaging DIAGNOSIS: Negative for intraepithelial lesion or malignancy Multiple factors can influence accuracy of Pap tests; therefore, screening at regular intervals is necessary for early cancer detection. SPECIMEN ADEQUACY: SATISFACTORY FOR EVALUATION Transformation zone is present. SOURCE OF SPECIMEN: CERVICAL SLIDES: 1 CLINICAL HISTORY: Pap test, as part of routine gynecological examination HPV HR-HPV POOL: Negative The Aptima HPV assay is an in vitro nucleic acid amplification test for the qualitative detection of E6/E7 viral messenger RNA from 14 high risk types of HPV in cervical specimens. The high risk HPV types detected include: 16, 18, 31, 33, 35, 39, 45, 51, 52, 56, 58, 59, 66, 68 VOCATIONAL ED INSTRUCTOR: JAZLYN LUCAS (ASCP) CPT CODES: 65251, 24198 11/18/2022 7:23 AM EST [facility] ThinPrep Vial Cervix uteri structure / Unknown Collection / Unknown 11/16/2022 4:17 PM EST 11/16/2022 4:17 PM EST us Sathya Paris AQUEDUCT AND RESERVOIR KEEPER PATHOLOGY/CYTOLOGY ORDERABLES Final Result [facility]
[address] [place] [address], from Last 3 Months or Most Recently Relevant to Health Maintenance Insurance Advance Directives Documents on File Type Date Recorded Patient Bend Up Expl anation LIVING WILL - SCAN 04/21/2022 6:07 AM DIMA NG WILL DIRECTIVE 08/25/2017 * Full Code (Latest Code Status on File) Date Activated Date Inactivated Comments 08/25/2017 2:51 PM 08/26/2017 12:02 PM * Full Code Date Activated Date Inactivated Comments 08/25/2017 2:44 PM 08/25/2017 2:51 PM Care Teams Auto Bumper Straightener Relationship Specialty Start Date End Date James Riggins MD PCP - General Family Medicine 08/03/17
== END 2025-06-30 23:59 | disposition home or self-care (01) ==
LOC: RT 09:12
PROVIDERS: PCP Family Medicine; Visit Provider Physician Assistant
DX: I49.1 Atrial premature depolarization (principal); I49.3 Ventricular premature depolarization
CPT/HCPCS: 93270

== ENCOUNTER 2025-07-14 09:43 | Outpatient (CLI) | payer BC, SELFPAY ==
--- OUTSIDE RECORDS SUMMARY | 2025-07-14 09:47 | XMS_ITS | Data Portability ---
Author Organization [facility] Address [address] [place] [address] Assessment No assessment recorded. Plan of Treatment Reminders Order Date Submit Date Provider Last Modified By Organization Details Last Modified Time Details Appointments None record ed. Lab None record ed. Referral None record ed. Procedures None record ed. Surgeries None record ed. Imaging None record ed. Medication Orders None record ed. Patient TargetsNo targets recorded. Patient Instructions Encounter Date Encounter Id Patient Instructions Last Modified By Organization Details Last Modified Time 03/16/2018 [id number] eating healthy foods: care instructions [id number] Not available 04/14/2022 03:49:01 Reason for Referral None Reported. Results Created Date Observation Date Name Description Value Unit Range Abnormal Flag Note LastModifiedBy Organization Detail LastModifiedTime 03/14/20 18 03/14/2018 MRI, elbow , w/o contr ast [place] [address] [address] Patien t Name: SANTAMAGALY Rodriguez LINDA Patirita t : 976 Patien t 1 Orderi ng Provid er: ROBERT N Vinny FRIAS Y EXAM DATE: 2017 EXAM: MR LT ELBOW WITHOU T CONTRA ST HISTOR Y: 42-yea r-old female with left elbow pain. COMPAR MASSIEL: [facility] 11/13[facility] 18. FINDIN GS: There is a subacu te fractu re of the left radial head. There is minima l associ ated marrow edema and trabec ular interr uption . There is minima l step-o ff along the articu lar surfac e of the radial head. No acute fractu re is identi fied. There is a small joint effusi on in the elbow. The ulnar collat eral ligame nt, latera l ulnar collat eral ligame nt, and radial collat eral ligame nt appear intact . The common extens or tendon and common flexor tendon are normal in appear ance. The biceps , brachi lorie, and tricep s tendon s appear normal . There is minima l subcut aneous edema. IMPRES CASA: 1. There is a subacu te fractu re of the left radial head. There is no eviden ce of delaye d union and there is minima l residu al displa cement . 2. There is a small joint effusi on in the left elbow. Interp reted By: Aly patel MD Electr onical ly Signed By: Aly patel MD on 03/14/20 18 9:46 AM [id number] [facility] [address], [address], 04/14/2022 03:50:46 Result Notes Documentation Provider Name and Address Organization Details Recorded Time Mri, Elbow, W/o Contrast : [address] [address] Patient Name: NILE MCKEON Patient : 1975 Patient Ordering Provider: TAMIKA ASHFORD EXAM DATE: 03/14/2018 EXAM: MR LT ELBOW WITHOUT CONTRAST HISTORY: 42-year-old female with left elbow pain. COMPARISON: Report from radiograph performed at [facility] on 11/13/2017. FINDINGS: There is a subacute fracture of the left radial head. There is minimal associated marrow edema and trabecular interruption. There is minimal step-off along the articular surface of the radial head. No acute fracture is identified. There is a small joint effusion in the elbow. The ulnar collateral ligament, lateral ulnar collateral ligament, and radial collateral ligament appear intact. The common extensor tendon and common flexor tendon are normal in appearance. The biceps, brachialis, and triceps tendons appear normal. There is minimal subcutaneous edema. IMPRESSION: 1. There is a subacute fracture of the left radial head. There is no evidence of delayed union and there is minimal residual displacement. 2. There is a small joint effusion in the left elbow. Interpreted By: Felipe Sanchez MD KA ASHFORD MD [address] [place] [address], [phone], [facility] 03/14/2018 11:08:27 Medical Equipment None Reported. Allergies No known drug allergies Medications Name Sig Start Date Stop Date Status Note LastModified by Organization Details LastModified Time Zoloft 100 mg tablet Take 1 tablet every day by oral route. active Not Available Not Available No t Available Singulair active Not Available Not Lissette ilable Not Available inhaler, assist devices, accessories active Not Available Not Available Not Available Vitals Date Recorded Body height Body mass index (BMI) Body weight Provider Name and Address Organization Details Last Updated DateTime 03/07/2018 152.4 cm 44.9 kg/m2 005571.25 g [facility] 03/07/2018 09:41:15 Date Recorded Body height Body mass index (BMI) Body weight Provider Name and Address Organization Details Last Updated DateTime 03/16/2018 152.4 cm 44.9 kg/m2 717073.25 g [facility] 03/16/2018 08:17:31 Social History Question Answer Notes LastModified by [employer] Details LastModified Time Accident Related Injury Yes Information not available 03/07/2018 What Is Your Level Of Caffeine Consumption? Occasional Information not available 03/07/2018 Which Of Your Hands Is Dominant? Right Information not available 03/07/2018 Which Hand Is Involved? Left Information not available 03/07/2018 Date Of Injury: 11-11-2017 Informati on not available 03/07/2018 Marital Status Informatio n not available 03/07/2018 Sex: Unknown Functional Status Question Answer Note LastModified by [employer] Details LastModified Time Do you use any illicit or recreational drugs? No Information not available 03/07/2018 What is your level of alcohol consumption? Occasional Information not available 03/07/2018 What is your occupation? stay at home mom Information not available 03/07/2018 Mental Status None recorded. Family History Relationship Description Onset Age of this Age Resolved Age Notes LastModified by Organization Details LastModified Time Father No current problems or disability Not available 03/07 09:42:48 Mother No current problems or disability Not available 03/07 09:42:48 Medical History Condition Response Allergies/Hayfever Y Pneumonia Y Gynecological HistoryNo gynecological history recorded. Obstetrics History GPAL:G 0 P 0 0 0 0 Past Encounters Encounter ID Performer Location Encounter Start Date Encounter Closed Date Diagnosis/Indication Diagnosis SNOMED-CT Code Diagnosis ICD10 Code Diagnosis IMO Codes Diagnosis Note [id number] TAMIKA ASHFORD MD [facility] [address] [place] [address] 03/07/2018 09:08:27 03/07/2018 11:08:36 Unstable left elbow joint [id number] M25.322 Possible instabilit y causing symptoms, Possible chondral damage to the capitellum , possible loose body. Usually when I see the vertical portion not healed it means that there is A shear of the capitellar cartilage that is interposed between the fracture fragments which is difficult or impossible to tell at the time of the initial injury. This may be an indication that there is another loose cartilage fragment in the joint causing her Mechanical symptoms that is not visible on x-rays. Recommend MRI left elbow follow-up with test. We will also evaluate lateral collateral ligament because she has some pain with stressing it. [id number] TAMIKA ASHFORD MD [facility] [address] [place] [address] 03/16/2018 08:13:01 03/16/2018 09:10:08 Unstable left elbow joint [id number] M25.322 Left elbow radial head fracture, improving, no obvious sign of mechanical symptoms, no loose body no ligament tear. Observe for another 2 months if still symptomati c consider elbow arthroscop y. She understand s. No restrictio ns. Follow-up as needed. MRI reviewed. Health Concerns Section Related Observation LastModified by Organization Detai ls LastModified Time None Recorded Concern Status LastModified by Organization Details LastModified Time None Recorded Advance Directives Directive None Recorded Payers Insurance Date Sequence Insurance Name Policy Number Policy Singleton Covered Member ID Singleton Member ID Guarantor Name 09/02/2020 1 [place] [employer] ([place]) [id number] Cecilio Mckeon [id number] Michael Linda Notes Date Note Type Note Provider Name and Address Organization Details Recorded Time 03/07/2018 text/html Hand SurgeryRepo rted by PatientHPIFor hand dominance, patient reportsright. For location, patient reportsleft. For severity, patient reportspain level 1/10. For duration, patient reportsdate of injury: [id number] weeks. For previous surgery, patient reportsnone. For work related, patient reportsno. For working, patient reportsno. 17 weeks left elbow pain, popping catching and locking in the joint, hurts often, Does not feel right. TAMIKA ASHFORD MD [address] [place], [address], [facility] 03/07/2018 10:14:57 03/16/2018 text/html Hand SurgeryRepo rted by PatientHPIFor hand dominance, patient reportsright. For location, patient reportsleft. For severity, patient reportspain level 1/10. For duration, patient reportsdate of injury: [id number] months. For previous surgery, patient reportsnone. For work related, patient reportsno. 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
--- OUTSIDE RECORDS SUMMARY | 2025-07-14 09:47 | XMS_ITS | Clinical Summary ---
Author Organization [facility] Address [address] [place] [address] Care Team Providers Care Environmental Field Services Technician Name Role Phone James Riggins MD Primary [...] for Itching. 30 capsule 3 1 Active Geneva-3 Fatty Acids (fish oil) 500 MG capsule capsule Acti ve omeprazole (priLOSEC) 40 MG capsule 3 Active estradiol (Estrace) 1 MG tablet Take 1 tablet by mouth Daily. 90 tablet 3 3 Active Active Problems Problem Noted Date Diagnosed Date History of UTI 09/26/2017 Acute URI 09/26/2017 Post-operative state 09/26/2017 Endometriosis 08/11/2017 Overview (08/11/2017): Added automatically from request for surgery [id number] Dysmenorrhea 08/03/2017 Abnormal uterine bleeding (AUB) 08/03/2017 Intramural leiomyoma of uterus 08/03/2017 Encounters Date Type Department Care Team Description 07/07/2025 Refill [facility] [address] [id number] Sathya Paris APRN from Last 3 Months Family History Medical History Relation Name Comments [...] help finding or keeping work or a geri b? Not on file 07/17/2023 Disabilities Answer [...] Pelvic and Breast Exam 11/17/2023 11/16/2022 MAMMOGRAM 05/03/2025 05/03/2023, 04/08, 04/17/2023, Additional history exists INFLUENZA VACCINE [...] auto-finalized with no dictation required. Sathya Paris RN ENTEROSTOMAL IMG MAMMOGRAPHY ORDERABLES Fi nal Result * Cologuard - Stool, Per Rectum (11/29/2022 10:00 AM EST) Cologuard Negative Negative 12/06/2022 5:14 PM EST Rupture (CLIA #:[id number]) Comment: NEGATIVE TEST RESULT. A negative Cologuard [...] screened with both Cologuard and colonoscopy. (Oswaldo Peters et al, N Engl J Med 2014;370(14):3855-5802) The normal value (reference range) for this assay is negative. COLOGUARD RE-SCREENING RECOMMENDATION: Periodic colorectal cancer screening is an important part of preventive healthcare for asymptomatic individuals at average risk for colorectal cancer. Following a negative Cologuard result, the [place] [employer] Society and U.S. Multi-Society Task Force screening guidelines recommend a Cologuard re-screening interval of 3 years. References: [place] [employer] Guideline for Colorectal Cancer Screening: https://www.cancer.org/cancer/avrkq-xgicky-ztcfxk/smkegqflg-vzjzobazv-buxnjfn/ac s-rec ommendations.html.; Jacob DK, Hammad DAWN, Dominitz JK, Colorectal Cancer Screening: Recommendations for Physicians and Patients from the U.S. Multi-Society Task Force on Colorectal Cancer Screening , Am J Gastroenterology 2017; 112:2923-1613. TEST DESCRIPTION: Composite algorithmic analysis of stool [...] Alvarado. et al, N Engl J Med 2014;370(14):8594-2698.) Cologuard may produce a false negative or false positive result (no colorectal cancer or precancerous polyp present at colonoscopy follow up). A negative Cologuard test result does not guarantee the absence of CRC or advanced adenoma (pre-cancer). The current Cologuard screening interval is every 3 years. ([place] [employer] and U.S. Multi-Society Task Force). Cologuard performance data in a 10,000 patient pivotal study using colonoscopy as the reference method can be accessed at the following location: www.[employer]unch/results. Additional description of the Cologuard test process, warnings and precautions can be found at www.[employer].com. Stool specimen (specimen) Specimen from rectum / Unknown 11/29/2022 10:00 AM EST 11/30/2022 1:44 PM EST Sathya Paris RN ENTEROSTOMAL BODY FLUIDS AND STOOLS ORDERA BLES Final Result Rupture (CLIA #:[id number]) [address] [place] [address], * LIQUID-BASED PAP SMEAR, [facility] ([facility]) (11/16/2022 4:17 PM EST) Reference Lab Report [facility] [address] [place] [address] or [phone] Samuel Pappas M.D., Accident Report Clerk PATIENT NAME LABORATORY NO. 65NILE CANCHOLA [id number] AGE SEX SSN CLIENT REF # [facility] 47 1975 F [id number] [facility] JUAN BACA REQUESTING Victor Manuel [place] [address] SATHYA PARIS DATE COLLECTED DATE RECEIVED DATE [...] 51, 52, 56, 58, 59, 66, 68 TOP SCREW: JAZLYN LUCAS (ASCP) CPT CODES: [id number], [id number] 11/18/2022 7:23 AM EST [facility] ThinPrep Vial Cervix uteri structure / Unknown Collection / Unknown 11/16/2022 4:17 PM EST 11/16/2022 4:17 PM EST Sathya Geri Iglesiasf RN ENTEROSTOMAL PATHOLOGY/CYTOLOGY ORDERABLES Final Result [facility]
[address] [place] [address], [place] [phone] from Last 3 Months or Most Recently Relevant to Health Maintenance Insurance [employer] PPO Advance Directives Documents on File Type Date Recorded Patient Vice President Integrated Expl anation LIVING WILL - SCAN 04/21/2022 6:07 AM DIMA NG WILL DIRECTIVE 08/25/2017 * Full Code (Latest Code Status on File) Date Activated Date Inactivated Comments 08/25/2017 2:51 PM 08/26/2017 12:02 PM * Full Code Date Activated Date Inactivated Comments 08/25/2017 2:44 PM 08/25/2017 2:51 PM Care Teams Environmental Field Services Technician Relationship Specialty Start Date End Date James Riggins MD PCP - General Family Medicine 08/03/17
--- OUTSIDE RECORDS SUMMARY | 2025-07-14 09:47 | XMS_ITS | Encounter Summary ---
Author Organization [facility] Address [address] [place] [address] Care Team Providers Care Loss Prevention Officer Name Role Phone James Riggins MD Primary Care Provider + Reason for Visit * Reason Comments Med Refill Encounter Details Date Type Department Care Team (Late st Contact Info) Description 07/07/2025 Refill [facility] OBGYN [address] [place] [address] Katina Acosta, BUSINESS MACHINE MECHANIC [address] [facility] [address] [place] [address] Social History Tobacco Use Types Packs/Day Years [...] on file Sexual Orientation Not on file documented as of this encounter Miscellaneous Notes * Telephone Encounter - Wilma Roberson MA - 07/07/2025 4:34 PM EDT Patient needs annual appt documented in this encounter Plan of Treatment Not on file documented as of this encounter Visit Diagnoses Not on filedocumented in this encounter Care Teams Loss Prevention Officer Relationship Specialty Start Date End Date James Riggins MD PCP - General Family Medicine 08/03/17 documented as of this encounter
[2025-07-14 10:28] LABS: Hematocrit 43.0 % (37.0-47.0); Hemoglobin 14.6 g/dL (12.2-16.2); Immature Granulocytes % 0 %; Mean Corpuscular HGB Conc 34.0 g/dL (31.8-35.4); Mean Corpuscular Hemoglobin 30.7 pg (27.0-31.2); Mean Corpuscular Volume 90.3 fl (81-99); Nucleated Red Blood Cells % 0 %; Platelet Count 295 K/mm3 (142-424); Red Blood Count 4.76 M/mm3 (4.20-5.40); Red Cell Distribution Width-SD 43.3 fL; White Blood Count 5.6 K/mm3 (4.8-10.8)
[2025-07-14 11:50] LABS: Alanine Aminotransferase 27 U/L (12-78); Albumin Level 4.2 g/dl (3.5-5.0); Albumin/Globulin Ratio 1.8 (1.1-1.8); Alkaline Phosphatase 105 U/L (38-126); Anion Gap 12.7 mEq/L (5-15); Aspartate Amino Transferase 31 U/L (14-36); Bilirubin,Total 0.6 mg/dl (0.2-1.3); Blood Urea Nitrogen 11 mg/dl (7-17); Calcium 9.3 mg/dl (8.4-10.2); Carbon Dioxide 29 mmol/L (22.0-30.0); Chloride 103 mmol/L (98-107); Cholesterol 172 mg/dl (140-200); Creatinine,Serum 0.60 mg/dl (0.52-1.04); Estimated Glomerular Filt Rate 107 ml/min (>60); GFR (African American) 129 ML/MIN (>60); Globulin 2.3 g/dL (1.3-3.2); Glucose 96 mg/dl (74-100); HDL Cholesterol 73 mg/dl (40-60); Potassium 4.7 mmoL/L (3.5-5.1); Sodium 140 mmol/L (136-145); Total Protein,Serum 6.5 g/dl (6.3-8.2); Triglycerides 125 mg/dl (30-150)
[2025-07-14 12:11] LABS: 25-OH Vitamin D, Total 51.5 ng/mL (30-100)
[2025-07-14 12:15] LABS: Free T4 (Free Thyroxine) 1.07 ng/dl (0.78-2.19)
[2025-07-14 12:46] LABS: Folate 7.05 ng/mL
[2025-07-14 15:40] LABS: Iron 77 ug/dL (37-170)
[2025-07-14 15:51] LABS: Total Iron Binding Capacity 301 ug/dL (265-497)
[2025-07-14 16:14] LABS: Thyroid Stimulating Hormone 1.50 uIU/mL (0.465-4.68)
[2025-07-14 17:03] LABS: Hemoglobin A1C 5.0 % (4.0-6.0)
[2025-07-15 10:12] LABS: Prealbumin 23 mg/dL (12-34)
== END 2025-07-14 23:59 | disposition home or self-care (01) ==
LOC: LAB 09:44
PROVIDERS: PCP Nurse Practitioner; Visit Provider Physician Assistant
DX: K31.89 Other diseases of stomach and duodenum (principal); E55.9 Vitamin D deficiency, unspecified; Z90.3 Acquired absence of stomach [part of]; Z91.89 Other specified personal risk factors, not elsewhere classified
CPT/HCPCS: 36415; 80053; 80061; 82306; 82525; 82746; 83036; 83540; 83550; 84134; 84255; 84425; 84439; 84443; 84446; 84590; 84630; 85025

== ENCOUNTER 2025-07-17 10:36 | Outpatient (CLI) | payer BC, SELFPAY ==
[2025-07-17 10:30] VITALS: BP 112/78; BP 167/85; PULSE 71; RESP 14
--- NOTE | 2025-07-17 10:30 | CA_ITS ---
APPROVED REPORT Exam: Exercise Treadmill Technologist: Sussy Chapman Ht: 5 ft 3 in Wt: 202 lbs BSA: 1.94 m2 HR: 71 bpm BP: 112/78 mmHg Rhythm: SR Stress Test Details HR Resting HR: 71 bpm Max Heart Rate (APMHR): 172.211230 bpm Target HR (85% APMHR): 146.918625 bpm Recovery HR: 132 bpm BP Resting BP: 112.0/78.0 mmHg Recovery BP: 159.0/80.0 mmHg ECG Resting ECG: SR Stress ECG Conclusion During lorrie protocol pt walked 6:51 minutes, stopped due to dyspnea. Pt experinced dyspnea. PVCs noted. Less than .5mm upsloping ST segment changes. Guzman treadmill score 6. Electronically signed by : Rhonda Cerna MD 07/21/2025 02:01:24
== END 2025-07-17 23:59 | disposition home or self-care (01) ==
LOC: RT 10:37
PROVIDERS: PCP Nurse Practitioner; Visit Provider Nurse Practitioner Family
DX: I49.3 Ventricular premature depolarization (principal); R94.31 Abnormal electrocardiogram [ECG] [EKG]
CPT/HCPCS: 93017; 93018